=== PATIENT | female | born 1955 | race Caucasian/White ===

== ENCOUNTER 2018-09-23 09:36 | Day surgery (SDC) | payer OTHER ==
[2018-09-22 17:09] VITALS: BMI 20.6
--- NOTE | 2018-09-22 19:02 | PREOPHP ---
DATE OF ADMISSION: 09/23/2018 HISTORY OF PRESENT ILLNESS: This 63-year-old patient is admitted for elective cataract surgery of th e right eye. The patient had previously been scheduled for cataract surgery, but this had been cance led because of diabetes being poorly controlled. The patient's systemic history is positive for a 15 -year history of dkw-typjtgw-[id number] diabetes mellitus as well as systemic hypertension and hyperch olesterolemia. CURRENT MEDICATIONS: Include: 1. Lipitor. 2. Metformin. 3. Losartan. ALLERGIES: THERE ARE NO KNOWN ALLERGIES. PHYSICAL EXAMINATION: The visual acuity best corrected is 20/400 in the right eye and 20/200 in the left eye. Slit lamp examination reveals a near mature cataract with dense nuclear sclerosis and a mo derate posterior subcapsular cataract in the right eye and a moderate nuclear sclerosis and a moderat e posterior subcapsular cataract in the left eye. Applanation tonometry is 23 mmHg. Examination of the retina in the right eye is obscured by the near mature cataract. The left eye only has small opt ic disk cupping. DIAGNOSIS: Mature cataract, right eye. PLAN: Cataract extraction with lens implant, right eye. The risks and alternatives to the surgery h ave been discussed with the patient as well as the hope for improvement of visual acuity leading to g reater ability to perform activities of daily living. The patient understands that it is difficult t o prognosticate visual outcome in the right eye due to the fact that visualization of the retina is o bscured by the mature cataract. The patient understands this and agrees to proceed with surgery. Dictated By: HANNAH SIEGEL/MAIKOL Conf#: [id number] DID#: [id number]
[~2018-09-23] VITALS: Ht 139.7 cm; Wt 45.8 kg
[2018-09-23] VITALS (11 sets, daily range): BP systolic 111–158; BP diastolic 63–78; PULSE 62–85; RESP 14–18; Ht 139.7 cm; Wt 45.8 kg
[~2018-09-23 09:36] MED LIST: BALANCED SALT SOLN OPH IRRIG 500 ML, GENTAMICIN 4 MG, EPINEPHrine 0.1 MG IRR SCH; CYCLOPENTOLATE/PHENYLEPH 2 ML OPH OPER SCH; DICLOFENAC 0.1% 2.5 ML OPH OPER SCH; MOXIFLOXACIN 0.5% 3 ML OPH OPER SCH; SOD CHLORIDE 0.9% 1,000 ML IV SCH; TROPICAMIDE 1% 15 ML OPH OPER SCH
--- NOTE | 2018-09-23 09:58 | PREAC ---
Date/Time of Note Date/Time of Note DATE: 09/23/18 TIME: 09:57 Anesthesia Eval and Record Evaluation Time Pre-Procedure Interview DATE: 09/23/18 TIME: 09:57 Age 63 Sex female NPO: 8 hrs Preoperative diagnosis right eye cataract Planned procedure R eye CEIOL implant Past Medical History Past Medical History: Includes Cardio: HTN, Dyslipidemia Endo: Diabetes Surgery & Anesthesia Issues No known issue Meds Anticoagulation: No Beta [place] within 24 hr: No Reason Beta [place] not given: Pt. not on B-[place] Reported Medications Losartan-Hydrochlorothiazide (Losartan-HCTZ) 100-25 Mg Tab, 1 TAB PO DAILY, TAB 09/23/18 [Glyburide-Metformin] 5/,500 TAB No Conflict Check, 2 TAB BID 09/23/18 Atorvastatin* (Atorvastatin*) 40 Mg Tablet, 40 MG PO QHS, #30 TAB 09/23/18 Current Medications Diclofenac Sodium (Voltaren 0.1%) 1 drop Q5 MIN X 3 OPER ; Start 09/23/18 at 07:00; Stop 09/23/18 at 23:59 Tropicamide (Mydriacyl 1%) 1 drop Q5 MIN X3 OPER ; Start 09/23/18 at 07:00; Stop 09/23/18 at 23:59 Moxifloxacin HCl (Vigamox) 1 drop Q5 MIN X 3 OPER ; Start 09/23/18 at 07:00; Stop 09/23/18 at 23:59 Cyclopentolate/ Phenylephrine (Cyclomydril Oph 2 ml) 1 drop Q5 MIN X 3 OPER ; Start 09/23/18 at 07:00; Stop 09/23/18 at 23:59 Sodium Chloride 1,000 ml @ 25 mls/hr Q24H IV ; Start 09/23/18 at 07:00; Stop 09/23/18 at 23:59 Sod Cl/Ca Cl/Mg Cl/Pot Cl/ Gentamicin Sulfate/ Epinephrine ONCE IRR ; Start 09/23/18 at 07:00; Stop 09/23/18 at 23:59 Meds reviewed: Yes Allergies Coded Allergies: No Known Allergy (Unverified , 09/23/18) Allergies Reviewed: Yes Labs/Studies Labs Reviewed: Reviewed by anesthesiologist (glucose 47, 25 ml D50 given IV, rechecked glucose 171) test: N/A Studies: ECG Pre-procedure Exam Airway: Adequate mouth opening, Adequate thyromental dist Mallampati: Mallampati II Teeth: Normal Lung: Normal Heart: Normal ASA Physical Status ASA physical status: 3 Emergency: None Planned Anesthetic General/MAC: MAC Planned Pain Management Parenteral pain med, Local by surgeon Pre-operative Attestations Prior to commencing anesthesia and surgery, the patient was re-evaluated, there was verification of: *The patient's identity *The results of appropriate recent lab work and preoperative vital signs *The above evaluation not changing prior to induction *Anesthetic plan, risk benefits, alternative and complications discussed with patient/family; questions answered; patient/family understands, accepts and wishes to proceed. NAWAF ESCOBAR Sep 23, 2018 09:58
[2018-09-23] MEDS ORDERED: hydrALAzine 20 MG INJ IV PRN (10:00)
[2018-09-23] MEDS ORDERED: LABETALOL HCL 20MG INJ IV PRN (10:00)
[2018-09-23] MEDS ORDERED: ONDANSETRON 4 MG INJ IV PRN (10:00)
[2018-09-23] MEDS ORDERED: FENTAnyl 50 MCG/ML VIAL IV PRN ×3 (10:00)
[2018-09-23] MEDS ORDERED: OXYCODONE/ACETAMINOPHEN (5/325) TAB PO PRN ×2 (10:00)
[2018-09-23] MEDS ORDERED: ATOR40TA68 PO (10:18)
[2018-09-23] MEDS ORDERED: LOSA1TAB25 PO (10:22)
[2018-09-23] MEDS ORDERED: GLYBURIDE-METFORMIN (10:22)
[2018-09-23] MEDS ORDERED: PROPOFOL 20 ML ONE (10:48)
[2018-09-23] MEDS ORDERED: FENTAnyl 50 MCG/ML VIAL ONE (10:48)
[2018-09-23] MEDS ORDERED: EPINEPHrine 1 MG INJ ONE (11:04)
[2018-09-23] MEDS ORDERED: NA HYALURONATE/CHONDROITIN 0.5 ML SYG ONE (11:04)
[2018-09-23] MEDS ORDERED: TETRACAINE 0.5% 4 ML OPH ONE (11:04)
[2018-09-23] MEDS ORDERED: CARBACHOL 0.01% 1.5 ML OPH INJ ONE (11:04)
[2018-09-23] MEDS ORDERED: CEFAZOLIN 1 GM INJ ONE (11:04)
[2018-09-23] MEDS ORDERED: DEXAMETHASONE 4 MG/ML 1 ML INJ ONE ×2 (11:04→11:20)
[2018-09-23] MEDS ORDERED: LIDOCAINE 4% (MPF) 5 ML INJ ONE (11:05)
[2018-09-23] MEDS ORDERED: DEXTROSE 50% 50 ML SYRINGE ONE (11:34)
[2018-09-23] MEDS ORDERED: DEXTROSE 50% 50 ML SYRINGE IV ONE (11:40)
--- NOTE | 2018-09-23 12:26 | SIPON ---
Date/Time of Note Date/Time of Note DATE: 09/23/18 TIME: 12:25 Operative Report Preoperative Diagnosis mature cataract od Postoperative Diagnosis same Operation/Procedure Performed cataract extraction with lens implant od Surgeon hannah vu fiscal assistant none Anesthesia: MAC Estimated blood loss: none Transfusion Required none Specimen none Grafts/Implants posterior chamber lens implant Complications none HANNAH VU MD Sep 23, 2018 12:26
--- NOTE | 2018-09-23 13:12 | PAC ---
Date/Time of Note Date/Time of Note DATE: 09/23/18 TIME: 13:12 Post-Anesthesia Notes Post-Anesthesia Note Last documented vital signs Vital Signs Date Temp Pulse Resp B/P (MAP) Pulse Ox O2 O2 Flow FiO2 Time Delivery Rate 09/23/18 62 16 114/66 97 Room Air 13:06 (82) 09/23/18 97.9 12:29 Activity: WNL Respiratory function: WNL Cardiovascular function: WNL Mental status: Baseline Pain reasonably controlled: Yes Hydration appropriate: Yes Nausea/Vomiting absent: Yes NAWAF ESCOBAR Sep 23, 2018 13:12
--- NOTE | 2018-09-23 13:22 | OPR ---
DATE OF OPERATION: 09/23/2018 PREOPERATIVE DIAGNOSIS: Mature cataract, right eye. POSTOPERATIVE DIAGNOSIS: Mature cataract, right eye. OPERATION PERFORMED: Cataract extraction with lens implant, right eye. SURGEON: Hannah Early MD ANESTHESIA: Shola Sinclair CRNA ANESTHESIA: Local standby. OPERATION: Phacoemulsification with posterior chamber intraocular lens implant, right eye. PROCEDURE: The patient was brought to the operating room and placed on the table with an IV in place and the patient attached to an cafeteria monitor. Oxygen was given via face mask. After some intravenous sedation was administered, local anesthesia was given using Xylocaine 2% with epinephrine, mixed with Marcaine 0.5%. This was given in a lid block and retrobulbar injection. The p atient was then prepped and draped in the usual sterile manner. A wire lid speculum was inserted between the lids of the right eye. A Superblade was used to enter th e anterior chamber at the corneoscleral limbus at the 10:30 o'clock position. A separate incision was made using a 3.0-mm keratome which entered the corneoscleral junction at the 12 o'clock position. Th rough this 3-mm opening, an irrigating cystotome was introduced into the anterior chamber. The chambe r was filled with Viscoat and an anterior capsulotomy was performed. Balanced salt solution was then used for hydrodissection of the lens. Due to the maturity of the cataract, it was necessary to use a higher ultrasound setting on the phacoemulsification instrument. The phacoemulsification handpiece was then brought into the field and introduced into the anterior chamber. The lens nucleus was emulsi fied using a deep groove and cracking the nucleus into quadrants. Following this, each quadrant was a spirated and emulsified at the pupillary margin. After this was completed, the irrigation/aspiration handpiece was brought to the field, introduced in to the posterior chamber, and the lens cortical material was removed. When this was completed, additi onal Viscoat was injected into the anterior and posterior chambers. The 3-mm opening had its internal lips enlarged, and then the posterior chamber intraocular lens rolf uring 22.5 diopters ([employer] Model LI61AO) was then injected into the posterior c hamber using the lens injector system. After the leading haptic was introduced into the capsular bag and the lens optic was present in the center of the eye, the injector was removed and the trailing parker ptic was grasped with non-toothed forceps and introduced into the capsular fold superiorly. A Sinskey hook was then used to rotate the intraocular lens so that the lips were oriented in the horizontal m eridian. One 10-0 nylon suture was placed across the wound. Prior to tying, the irrigation/aspiration handpiece was reintroduced into the anterior chamber to rem ove the Viscoat. Miochol was instilled to constrict the pupil, and then the 10-0 nylon suture was tie d. The ends were cut short and then the knot was buried. Then, 0.5 mL of dexamethasone and 0.5 mL of Ancef were injected into the sub-Tenon space in the infer ior fornix. Ciloxan drops were then placed on the surface of the eye. The speculum was removed and a patch was applied. The patient then left the operating room in satisfactory condition. Dictated By: HANNAH SIEGEL/MAIKOL Conf#: [id number] DID#: [id number]
== END 2018-09-23 13:45 | disposition home or self-care (01) ==
LOC: SDS 09:36
PROVIDERS: ATTEND Ophthalmology
DX: H25.11 Age-related nuclear cataract, right eye (principal); I10 Essential (primary) hypertension; E78.00 Pure hypercholesterolemia, unspecified; E11.9 Type 2 diabetes mellitus without complications; Z79.84 Long term (current) use of oral hypoglycemic drugs
CPT/HCPCS: 66984; 82962; J0171; J0690; J1100; J3010; V2632; Z7512; Z7610